=== PATIENT | female | born 1930 | race Caucasian/White ===

== ENCOUNTER 2016-05-30 12:04 | Inpatient (IN) | payer MEDICARE, BC ==
--- NOTE | ~2016-05-30 | HP ---
Unit #: [id number] #: [id number] Patient: ELIUD TAM [id number] [address] [address] [id number] I MR#: [id number] NAME: ELIUD TAM. ROOM: 05995 Age: 86 Sex: F Admission Date: 05/30/2016 : 1930 Attending Physician: Senia Qureshi M.D. Primary Care Physician: Shen Walter M.D. HISTORY AND PHYSICAL CHIEF COMPLAINT Right foot infection. HISTORY OF PRESENT ILLNESS The patient is an 86-year-old female with a past medical history of hypothyroidism, osteoporosis, and constipation, who presented to the emergency department for evaluation of the above. The patient states that she had foot surgery on May 23, 2016. She had a toe spur and had some type of surgery on the fourth and fifth toes of the right foot by Dr. Morris (Podiatry) at [facility]. She apparently saw Dr. Morris on May 28, 2016, and was noted to have infection. She was started on an unknown antibiotic which she has been taking as prescribed. The foot has not gotten any better, so she presented to the emergency department today for evaluation. She denies any fever. She states that she has had some drainage from the wound. She has had increased pain and swelling. In the emergency department, a foot x-ray was done and showed no acute abnormality. Temperature was 98.1 and pulse and blood pressure 85 and 145/45, respectively. White blood cell count is 5.9. She was given vancomycin and Levaquin in the emergency department. She is being admitted to [facility] for evaluation and further treatment. PAST MEDICAL HISTORY 1. Admission to [facility] June 21-2015, for abdominal pain secondary to constipation. She also had acute kidney injury and hyperkalemia. 2. Hypothyroidism. 3. Osteoporosis. PAST SURGICAL HISTORY 1. Cataract surgery. 2. Left leg surgery. 3. EGD and colonoscopy August 02, 2015, showed a small hiatal hernia, mild gastritis, and multiple small gastric erosions. The patient also had scattered sigmoid diverticula and mild internal hemorrhoids. SOCIAL HISTORY The patient lives alone. She continues to drive. There is no tobacco or alcohol use. She is not sure of her code status and wants to discuss with family. Unit #: [id number] #: [id number] Patient: ELIUD TAM FAMILY HISTORY Notable for her mother dying at the age of 88. Her dad had heart problems. ALLERGIES PENICILLIN, SULFA. HOME MEDICATIONS 1. Atrovent nasal twice daily. 2. Flovent daily. 3. Levothyroxine 50 mcg Saturday, Saturday, , Saturday, and Saturday, and 75 mcg on Saturday and Saturday. 4. Calcium plus D daily. 5. MiraLax 17 grams daily. REVIEW OF SYSTEMS A complete review of systems is negative except as indicated in the History of Present Illness. PHYSICAL EXAMINATION VITAL SIGNS: Temperature is 98.1, pulse 85, respirations 16, and blood pressure 145/54. GENERAL: Patient is a very pleasant female who is awake, alert, and in no acute distress. HEENT: Head is atraumatic. Mucous membranes are moist. NECK: Supple. Trachea is midline. CARDIOVASCULAR: Regular rate and rhythm. LUNGS: Clear to auscultation bilaterally with no increased work of breathing. ABDOMEN: Soft and nontender with bowel sounds present in all four quadrants. EXTREMITIES: The fourth and fifth digits of the right foot demonstrate sutures. There is surrounding erythema of the toes extending to the dorsal aspect of the right foot. Additionally, there is a blister at the base of the great toe and second toe. She does have 2+ dorsalis pedis pulse. She is tender to palpation in this area. NEUROLOGIC: Patient is awake and alert. She follows commands. PSYCHIATRIC: Mood and affect are normal. Patient is cooperative. SKIN: Skin of examined areas demonstrates the previously described abnormalities. DIAGNOSTIC STUDIES LABORATORY: INR is 1. Basic metabolic panel notable for BUN and creatinine of 31 and 1.1, respectively. Complete blood count is essentially normal. IMAGING: Right foot x-ray shows no acute abnormality. ASSESSMENT The patient is an 86-year-old female with: 1. Postoperative wound infection that has failed outpatient treatment with an unknown antibiotic. 2. Hypothyroidism. 3. Osteoporosis. 4. Chronic constipation. PLAN 1. Admit to med/surg. 2. Healthy heart diet. Unit #: [id number] #: [id number] Patient: ELIUD TAM 3. N.p.o. after midnight for possible surgical intervention. 4. Blood cultures x2. 5. Wound culture and sensitivity. 6. Vancomycin IV and Levaquin IV pending further workup. 7. Consult Dr. Morris of Podiatry regarding postop wound infection. 8. TSH. 9. P.r.n. Tylenol. 10. Repeat labs in the morning. 11. Additional workup and consultants based on above. Dictated by Rosemary Akins/tiffanie TD: 05/30/2016 18:28 JOB #: [id number] HISTORY AND PHYSICAL Page 1 of 1 X Senia Qureshi MD X HISTORY AND PHYSICAL
--- NOTE | ~2016-05-30 | HP ---
Unit #: [id number] #: [id number] Patient: ELIUD TAM [id number] [address] [address] [id number] I MR#: [id number] NAME: ELIUD TAM. ROOM: 474 Age: 86 Sex: F Admission Date: 05/30/2016 : 1930 Attending Physician: Senia Qureshi M.D. Primary Care Physician: Shen Waltre M.D. HISTORY AND PHYSICAL ADDENDUM I spoke with Dr. Charmaine Morris (Podiatry), who stated that a [facility] resident will see the patient in consultation. She stated that they would not do any type of surgical intervention and agreed with antibiotics. Dictated by Rosemary Akins/tiffanie TD: 05/30/2016 20:14 JOB #: [id number] HISTORY AND PHYSICAL Page 1 of 1 X Senia Qureshi MD X HISTORY AND PHYSICAL
--- NOTE | ~2016-05-30 | DS ---
Unit #: [id number] #: [id number] Patient: ELIUD TAM [id number] [address] [place], [place] [address] [id number] I MR#: [id number] NAME: ELIUD TAM. ROOM: 474 Age: 86 Sex: F Admission Date: 05/30/2016 : 1930 Discharge Date: 06/01/2016 Attending Physician: Sumanth Hardwick M.D. Primary Care Physician: Shen Walter M.D. DISCHARGE SUMMARY PRIMARY CARE PHYSICIAN Shen Walter M.D. DISCHARGE DIAGNOSES 1. Postop right foot wound seen by Podiatry. No signs of osteomyelitis. No signs of systemic infection. She will be discharged to continue oral antibiotics. 2. Hypothyroidism. TSH is 2.81. Continue levothyroxine and supplements. 3. History of osteoarthritis. 4. Chronic constipation. PROCEDURES None. CONSULTANTS [facility], Podiatry. DIAGNOSTIC STUDIES IMAGING STUDIES: Foot x-ray on 05/30/2016, impression; 1. No acute abnormality seen in the right foot. No fracture or evidence of osteomyelitis or retained radiopaque foreign body. 2. Osteopenia. LABORATORY RESULTS: On the day of discharge BMP; glucose 99, BUN 32, creatinine 1.1, sodium 136, potassium 4.7, chloride 108, CO2 of 21, calcium 9.2, magnesium 1.8. CBC with WBC 5.7, RBC 3.85, hemoglobin 11.6, hematocrit 35.5, MCV 92.2, MCH 30.2, MCHC 32.8, RDW 12.6, platelets 151, MPV 9.5. Wound and blood cultures, no growth. HOSPITAL COURSE The patient is a pleasant 86-year-old female with past medical history of hypothyroidism, osteoarthritis, and chronic constipation, who presented to the emergency department due to foot pain. The patient had foot surgery in 05/28/2016 with [facility] Podiatry with Dr. Morris, the 4th and 5th toes of the right foot. She was seen by Dr. Morris on 05/28/2016 and was noted to have cellulitis of the foot and was started on clindamycin. She states that the foot pain has gone worse, but no fever, no drainage on the wound, only a small blister. X-ray of the foot was done in the emergency department which showed no acute abnormality. Vitals were stable. She was admitted to [facility] and was given vancomycin and Levaquin for persistent foot pain despite oral antibiotics and pain management in home. She was seen in consultation with [facility] Podiatry, who felt that there was a blister and it was lanced, but possibly the compression of the foot was too much for her and that she could remove it, Unit #: [id number] #: [id number] Patient: ELIUD TAM but no evidence of osteomyelitis and the cellulitis did not look systemically infected. It was recommended that the patient to stay for a couple of days of IV antibiotics given the cellulitis and persistent pain. After blood and wound culture were negative, it was felt by Podiatry that the patient was safe to be discharged home to continue with clindamycin that she was taking as was prior to hospitalization and she could continue with pain medicine that they had given her outpatient for pain management. The patient will be discharged. She will be going home to her son's home to stay with them. DISCHARGE CONDITION Stable. DISCHARGE INSTRUCTIONS To remain off the foot and to elevate as much as possible for dependent pain. Diet, heart-healthy diet. The patient is to follow up with Podiatry. She has an appointment on Saturday with Dr. Juarez and Dr. Castillo. She is to keep the dressing dry. DISCHARGE MEDICATIONS Includes clindamycin as was prior to admission, pain medicine as was prior to admission per her Podiatry; ipratropium 0.03 nasal spray 2 puffs daily; Flovent Diskus inhaled 2 puffs daily; MiraLax 17 g orally daily; calcium + D one tablet orally daily; levothyroxine 50 mcg Saturday, Saturday, , Saturday, and Saturday; levothyroxine 75 mcg Saturday and Saturday. Dictated by... Doni Franklin PA-C for Rosemary Barraza/zechariah TD: 06/03/2016 07:00 JOB #: [id number] DISCHARGE SUMMARY Page 1 of 1 X X DISCHARGE SUMMARY
--- NOTE | ~2016-05-30 | CR127 ---
[facility] A Service of [facility] RADIOLOGY TEXT RESULTS PATIENT: ELIUD TAM LOCATION: [facility] 474-01 : [birth year] UNIT #: [id number] AGE: [address]: Senia Qureshi MD SEX: F ORDER DR: [id number] [facility] [address]. [place], [place] [address] [id number] E MR#: [id number] Acc #: [id number] NAME: ELIUD TAM. : 1930 SEX: F STUDY DATE/TIME: 05/30/2016 11:51 UNIT: [facility] ROOM: STUDY DESCRIPTION: CR Foot Complete Min 3 View Rt Attending Physician: Ha Mcgowan D.O. Ordering Physician: Ha Mcgowan D.O. Primary Care Physician: Shen Walter M.D. MEDICAL IMAGING REPORT This report is preliminary unless electronic signature is present EXAM 3 views right foot, 05/30/2016 11:51. HISTORY Pain, swelling and redness of right foot. Blisters on the top of the foot. Had surgery on the right foot for bone spurs 1 week ago. COMPARISON None. FINDINGS No fracture or joint dislocation is seen. Osteopenic changes are present. No osteolytic or osteoblastic abnormalities. No evidence of periostitis. No unexpected retained radiopaque foreign body is seen within the soft tissues. Joint spaces appear well preserved. IMPRESSION 1. No acute abnormality is seen within the right foot. No fracture or evidence of osteomyelitis or retained radiopaque foreign body. 2. Osteopenia. Dictated by... Rubi Sher M.D. THIS IS AN ELECTRONICALLY VERIFIED REPORT Rubi Sher M.D. at 05/31/2016 7:04 AM VERONICA/navi TD: 05/30/2016 13:50 JOB #: [id number] MEDICAL IMAGING REPORT [facility] A Service of [facility] RADIOLOGY TEXT RESULTS PATIENT: ELIUD TAM LOCATION: [place] [address]-01 : [birth year] UNIT #: [id number] AGE: [address]: Senia Qureshi MD SEX: F ORDER DR: Page 1 of 1 COPY
[~2016-05-30 12:04] MED LIST: ASPIRIN; BENZONATATE PO; CALCIUM; ENEMA BAG1 EACH PR; EVISTA60 MG; FOSAMAX; MIRALAX17 G2 PO; OMEPRAZOLE20 M2 PO; SYNTHROID; SYNTHROID PO; TAMIFLU75 M1 PO; THYROID MED; VAGIFEM25 MCG; ZESTRIL10 MG PO
[2016-05-30 12:16] LABS: PARTIAL THROMBOPLASTIN TIME 27.7 SECONDS (23.5-31.3)
[2016-05-30 12:35] LABS: BUN/CREATININE RATIO 28.18; CALCIUM SERUM 9.1 mg/dL (8.4-10.2); CREATININE SERUM 1.1 mg/dL (0.6-1.4); GLOM FILT RATE Estimated 44.8 mL/min (>60); POTASSIUM 4.7 mmol/L (3.5-5.1)
[2016-05-30] MEDS ORDERED: FLOVENT DISKUS50 MCG INH (13:57)
[2016-05-30 16:07] LABS: BASOPHIL% 0.8 % (0-2.5); EOSINOPHIL# 0.1 X10e3 (0-0.7); EOSINOPHIL% 2.3 % (0.0-7.0); HEMATOCRIT 36.7 % (35.0-45.0); HEMOGLOBIN 12.1 gm/dL (12.0-16.0); LYMPHOCYTE# 1.6 X10e3 (1.0-3.5); LYMPHOCYTE% 27.9 % (17.0-45.0); MEAN CELL VOLUME 93.2 FL (83-96); MEAN CORPUSCULAR HEMOGLOBIN 30.7 PG (28-34); MEAN CORPUSCULAR HGB CONC 32.9 g/dL (30-36); MEAN PLATELET VOLUME 9.4 FL (6.5-11.5); MONOCYTE# 0.8 X10e3 (0-1.0); MONOCYTE% 13.9 % (3.0-12.0); NEUTROPHIL# 3.2 X10e3 (1.5-7.1); NEUTROPHIL% 55.1 % (40-75); PLATELET COUNT 154 X10e3 (140-420); RED BLOOD COUNT 3.93 X10e (3.90-5.30); RED CELL DISTRIBUTION WIDTH 12.7 % (11.0-15.5); WHITE BLOOD COUNT 5.9 X10e3 (4.0-10.5)
[2016-05-30 16:09] LABS: DIFF IND NO
[2016-05-31 03:42] LABS: BASOPHIL# 0.1 X10e3 (0-0.3); DIFF IND NO; EOSINOPHIL# 0.1 X10e3 (0-0.7); EOSINOPHIL% 2.3 % (0.0-7.0); HEMOGLOBIN 12.6 gm/dL (12.0-16.0); LYMPHOCYTE# 1.9 X10e3 (1.0-3.5); LYMPHOCYTE% 33.2 % (17.0-45.0); MEAN CELL VOLUME 92.3 FL (83-96); MEAN CORPUSCULAR HEMOGLOBIN 30.6 PG (28-34); MEAN CORPUSCULAR HGB CONC 33.1 g/dL (30-36); MEAN PLATELET VOLUME 8.6 FL (6.5-11.5); MONOCYTE# 0.9 X10e3 (0-1.0); NEUTROPHIL# 2.8 X10e3 (1.5-7.1); NEUTROPHIL% 47.5 % (40-75); PLATELET COUNT 165 X10e3 (140-420); RED BLOOD COUNT 4.11 X10e (3.90-5.30); RED CELL DISTRIBUTION WIDTH 12.9 % (11.0-15.5); WHITE BLOOD COUNT 5.8 X10e3 (4.0-10.5)
[2016-05-31 04:07] LABS: ALBUMIN SERUM 3.8 g/dL (3.5-5.0); BILIRUBIN,TOTAL 0.5 mg/dL (0.2-2.0); BUN/CREATININE RATIO 23.63; CALCIUM SERUM 9.5 mg/dL (8.4-10.2); CREATININE SERUM 1.1 mg/dL (0.6-1.4); GLOM FILT RATE Estimated 44.8 mL/min (>60); POTASSIUM 4.9 mmol/L (3.5-5.1); PROTEIN TOTAL SERUM 6.3 g/dL (6.0-8.3)
[2016-06-01 04:45] LABS: BUN/CREATININE RATIO 29.09; CALCIUM SERUM 9.2 mg/dL (8.4-10.2); CREATININE SERUM 1.1 mg/dL (0.6-1.4); GLOM FILT RATE Estimated 44.8 mL/min (>60); POTASSIUM 4.7 mmol/L (3.5-5.1)
[2016-06-01 08:33] LABS: BASOPHIL% 0.7 % (0-2.5); EOSINOPHIL# 0.1 X10e3 (0-0.7); EOSINOPHIL% 2.3 % (0.0-7.0); HEMATOCRIT 35.5 % (35.0-45.0); HEMOGLOBIN 11.6 gm/dL (12.0-16.0); LYMPHOCYTE# 1.8 X10e3 (1.0-3.5); LYMPHOCYTE% 31.7 % (17.0-45.0); MEAN CELL VOLUME 92.2 FL (83-96); MEAN CORPUSCULAR HEMOGLOBIN 30.2 PG (28-34); MEAN CORPUSCULAR HGB CONC 32.8 g/dL (30-36); MEAN PLATELET VOLUME 9.5 FL (6.5-11.5); MONOCYTE# 1.1 X10e3 (0-1.0); MONOCYTE% 19.6 % (3.0-12.0); NEUTROPHIL# 2.6 X10e3 (1.5-7.1); NEUTROPHIL% 45.7 % (40-75); PLATELET COUNT 151 X10e3 (140-420); RED BLOOD COUNT 3.85 X10e (3.90-5.30); RED CELL DISTRIBUTION WIDTH 12.6 % (11.0-15.5); WHITE BLOOD COUNT 5.7 X10e3 (4.0-10.5)
[2016-06-01 08:40] LABS: DIFF IND NO
[2016-06-01 08:49] LABS: MAGNESIUM 1.8 mg/dL (1.6-3.0)
[2016-06-28] MEDS ORDERED: FLONASE 0.05% N16 GM INH (13:18)
[2016-06-28] MEDS ORDERED: ATROVENT 0.03%30 ML (13:56)
[2016-06-28] MEDS ORDERED: LEVOTHYROXINE75 MCG PO (13:58)
[2016-06-28] MEDS ORDERED: LEVOTHYROXINE50 MCG PO (13:58)
[2016-06-28] MEDS ORDERED: CALCIUM + D SO1 EACH PO (13:59)
[2016-06-28] MEDS ORDERED: MIRALAX17 GM PO (14:00)
== END 2016-06-01 15:26 | disposition home or self-care (01) | DRG 863 ==
LOC: CED 12:04 → CEDOF 17:01 → C4C 19:23
PROVIDERS: Emergency Medicine; Family Medicine; Physician Assistant Medical
PROC: 0H9MXZZ Drainage of Right Foot Skin, External Approach (ICD-10-PCS; principal; 2016-05-31)
DX: T81.4XXA Infection following a procedure, initial encounter (principal); L03.115 Cellulitis of right lower limb; E03.9 Hypothyroidism, unspecified; M19.90 Unspecified osteoarthritis, unspecified site; K59.09 Other constipation; Z98.49 Cataract extraction status, unspecified eye; G89.18 Other acute postprocedural pain; M81.0 Age-related osteoporosis without current pathological fracture; S90.821A Blister (nonthermal), right foot, initial encounter
CPT/HCPCS: 36415; 73630; 80048; 80053; 80202; 83735; 84443; 85025; 85610; 85730; 87040; 87070; 87205; 96360; 99285; J1956; J3370

== ENCOUNTER 2016-06-04 14:00 | Emergency (ER) | payer MEDICARE, BC ==
--- NOTE | ~2016-06-04 | EKG ---
PATIENT: ELIUD TAM UNIT #: [id number] Ventricular Rate: 77 BPM Atrial Rate: 77 BPM P-R Interval: 162 ms QRS Duration: 130 ms Q-T Interval: 400 ms QTC Calculation(Bezet): 452 ms P [place]: 61 degrees Calculated R [place]: -46 degrees Calculated T [place]: 42 degrees Diagnosis Line: Normal sinus rhythm Diagnosis Line: Left axis deviation Diagnosis Line: Non-specific intra-ventricular conduction block Diagnosis Line: Abnormal ECG Diagnosis Line: When compared with ECG of 22-JUN-2015 20:00, Diagnosis Line: QRS axis Shifted left Diagnosis Line: Confirmed by ASHLEY CHRISTINA MD ([id number]) on 06/05/2016 Diagnosis Line: 5:42:32 AM INTERPRETING MD: CARRI DIAS
--- NOTE | ~2016-06-04 | DS ---
Unit #: [id number] #: [id number] Patient: ELIUD TAM [id number] [facility] [address]. [place], [place] [address] [id number] E MR#: [id number] NAME: ELIUD TAM ROOM: Age: 86 Sex: F Admission Date: 06/04/2016 : 1930 Discharge Date: 06/04/2016 Attending Physician: Nikolai Jasso M.D. Primary Care Physician: Shen Walter M.D. DISCHARGE SUMMARY SHORT-STAY SUMMARY HISTORY OF PRESENT ILLNESS This is an 86-year-old white female new to Cardiology with a past medical history of osteoarthritis, hypothyroidism, chronic constipation and varicose veins. She was recently admitted to [facility] May 30, 2016 for a right foot wound. X-rays revealed no osteomyelitis. Podiatry was consulted. She was placed on IV antibiotics and subsequently discharged on oral antibiotics. She went to the podiatry office today and was told that she could stop her antibiotics. She presented to the emergency department with complaints of chest pain. She states that since she has been on antibiotics she has had multiple episodes of nausea. After she takes a pill it causes stomach upset. Today around 10 o'clock a.m. she took the antibiotic and not only had some nausea but felt some pressure in her epigastric area that went up into her midsternal chest and neck. There was no radiation to the elbows, jaw or back. There were no sustained symptoms of diaphoresis or shortness of breath. There were no aggravating or alleviating factors. This is her first episode of chest pain. She has had no prior episodes. She is fairly active and still drives. She lives alone and does all of her own housework and yard work. There is no shortness of breath on exertion. She denies dizziness, palpitations or syncope. There are no reports of fever or chills. She denies any lower extremity edema. In the emergency department her temperature was 97.2, pulse 78, respirations 16, blood pressure 161/60, O2 saturation 98% on room air. Initial labs revealed a creatinine of 1.1 with a BUN of 32. Electrolytes are normal. Liver enzymes are normal. TSH on 05/31/2016 was normal. D-dimer was elevated at 2120. A CTA of the chest was completed and revealed no evidence of pulmonary embolus. On exam legs have no edema, redness or warmth. Cardiac enzymes are nonacute with a troponin of 0.07 and 0.06. Chest x-ray reveals no acute findings. X-ray of the foot last week revealed no evidence of osteomyelitis. The patient was given aspirin, Mylanta and sublingual nitroglycerin. She was recommended for admission due to chest pain. However, upon further interview the patient would like to be discharged home to avoid observation status. This is her first episode of chest pain and she really feels like it is from her antibiotics. She has agreed to follow up in our office for further evaluation. Her EKG is not acute but does reveal a left axis deviation as well as a nonspecific intraventricular conduction delay with a QRS of 0.13. The patient agrees to follow up and has been instructed to call for questions or come back to the emergency department for recurrent symptoms. She will be sent home on oral Protonix. Unit #: [id number] #: [id number] Patient: ELIUD TAM PAST MEDICAL HISTORY 1. Exercise stress test June 19, 2013 revealed a good exercise capacity. Normal EKG. 2. Recent admission to [facility] May 30, 2016 for right foot wound. No osteomyelitis. Discharged on oral antibiotics. 3. Hypothyroidism. 4. Chronic constipation. 5. Osteoarthritis. 6. History of rheumatic fever as a child. 7. History of EGD August 02, 2015 which revealed small hiatal hernia. Mild gastritis. Multiple small gastric erosions. Mild internal hemorrhoids with scattered diverticula. 8. Nonsmoker. PAST SURGICAL HISTORY 1. Cataract extraction. 2. Removal of varicose veins. 3. Tonsillectomy as a child. 4. Lumpectomy from breast, nonmalignant. HOME MEDICATIONS 1. Atrovent nasal b.i.d. 2. Levothyroxine 50 mcg p.o. daily on Saturday, Saturday, , Saturday, Saturday with 75 mcg on Saturday and Saturday. 3. Calcium with vitamin D one tablet p.o. daily. 4. MiraLAX 17 g p.o. daily. 5. Flonase one spray inhalation daily. ALLERGIES Penicillin, sulfa. SOCIAL HISTORY The patient lives in a private residence. She is a lifetime nonsmoker. There are no reports of alcohol or illicit drug use. She is very active and does all of her housework and yard work. She lives alone and continues to drive. FAMILY HISTORY Noncontributory for heart disease. REVIEW OF SYSTEMS A 10-point review of systems is negative except for details noted above in HPI. PHYSICAL EXAMINATION VITAL SIGNS: Temperature 97.2. Pulse 70. Blood pressure 150/71. CONSTITUTIONAL: This is an 86-year-old white female in no acute distress. SKIN: Skin is warm and dry. NECK: Neck is supple. No jugular vein distention. No hepatojugular reflux. Normal carotid upstrokes. No carotid bruits auscultated. HEART: S1, S2. Regular rate and rhythm. Soft systolic ejection murmur of the left sternal border. No rubs or gallops. LUNGS: Bilateral breath sounds have good air entry throughout lung conde. Respirations even and unlabored. No rales, rhonchi or wheezes. ABDOMEN: Abdomen is soft, nontender and nondistended. Positive bowel sounds auscultated x4 quadrants. No ascites noted. EXTREMITIES: Bilateral lower extremities have no pretibial pitting edema. Unit #: [id number] #: [id number] Patient: ELIUD TAM DP and PT pulses 2+. Capillary refill less than two seconds. DIAGNOSTIC STUDIES LABORATORY: White blood cell count 8.8, hemoglobin 13.1, hematocrit 39.1, platelets 179, sodium 135, potassium 4.1, chloride 101, CO2 24, BUN 32, creatinine 1.1, glucose 101, magnesium 1.8, AST 22, ALT 13, alkaline phosphatase 55, TSH 2.81 on May 31, 2016 and INR 1.0, D-dimer 2120, troponin 0.07 and 0.06. IMAGING: Chest x-ray no acute findings, calcified mitral annulus. X-ray of the right foot with no acute findings to suggest osteomyelitis and that was completed last week. CTA of the chest reveals no pulmonary embolus. CARDIOVASCULAR: EKG reveals sinus rhythm with a left axis deviation. Nonspecific intraventricular conduction delay. Possible LVH. QTc of 446 msec. IMPRESSION 1. Atypical chest pain. 2. Recent right foot infection, on antibiotics. No evidence of osteomyelitis on imaging. 3. Elevated D-dimer with no evidence of deep venous thrombosis on exam. CTA of the chest negative for pulmonary embolus. 4. Hypothyroidism. 5. Osteoarthritis. PLAN 1. The patient presented to the hospital with complaints of one episode of chest pain after taking her antibiotic. She went to her patient registrar and the antibiotic has been stopped. 2. There is no fever or chills. Her right leg has no streaking, warmth or edema. 3. Cardiac enzymes are nonacute with a troponin of 0.06. EKG is not normal and does reveal a left axis deviation as well as a nonspecific intraventricular conduction delay. However there are no acute findings. 4. The patient was originally recommended for hospitalization but does not want to stay overnight. 5. With negative CTA of the chest and nonacute markers she is stable for discharge home. 6. She has been instructed to follow up with her primary care in one to two weeks and with Dr. Alomdovar on July 03, 2016 at 1:00 p.m. 7. Her antibiotic has been discontinued from Podiatry. 8. She will be placed on Protonix 40 mg p.o. daily as symptoms could be GI related. 9. She would benefit from a 2D echocardiogram in the office to assess LV function and valves. 10. She did have a stress test in 2013 that was a treadmill only. She could be considered for a repeat ischemic workup though she has minimal risk factors for ischemic disease. 11. The patient has been advised to return to the emergency department for recurrent chest pain. Unit #: [id number] #: [id number] Patient: ELIUD TAM Dictated by... Linda Parks APRN for Rosemary Mejia/fuad TD: 06/04/2016 17:11 JOB #: [id number] DISCHARGE SUMMARY Page 1 of 1 X X DISCHARGE SUMMARY
--- NOTE | ~2016-06-04 | CT16 ---
[facility] A Service of [facility] RADIOLOGY TEXT RESULTS PATIENT: ELIUD TAM LOCATION: [employer] : [birth year] UNIT #: [id number] AGE: [address]: Nikolai Jasso MD SEX: F ORDER DR: [id number] [facility] [address] [place], [place] [address] [id number] E MR#: [id number] Acc #: [id number] NAME: ELIUD TAM. : 1930 SEX: F STUDY DATE/TIME: 06/04/2016 14:49 UNIT: [facility] ROOM: STUDY DESCRIPTION: CT Angio Chest for PE Attending Physician: Nikolai Jasso M.D. Ordering Physician: Nikolai Jasso M.D. Primary Care Physician: Shen Walter M.D. MEDICAL IMAGING REPORT This report is preliminary unless electronic signature is present EXAM CT chest PE protocol. HISTORY 86-year-old female presents with chest pain, elevated D-dimer today, symptoms for [id number]-og-mqlhc days. COMPARISON Portable chest, 06/04/2016. TECHNIQUE Axial images performed through the chest following IV contrast. 3-D coronal and sagittal reconstructed images are reviewed at a workstation. This CT exam was performed with one or more of the following radiation dose reduction techniques: automatic exposure control, adjustment of mA and/or kV according to patient size, and iterative reconstruction. FINDINGS There is several calcified granulomas right upper lobe. Background parenchyma suggests mild emphysematous changes. No acute airspace disease or consolidation. No effusions. Trachea and bronchi show mild tracheobronchomegaly. Normal enhancement of the pulmonary arteries. No evidence of embolus. Mild aortic atherosclerotic changes. Heart size within normal limits. No significant adenopathy. Upper abdomen unremarkable. Thoracic spine demonstrates accentuation of the thoracic kyphosis with mild degenerative changes. Thoracic inlet unremarkable. IMPRESSION 1. No acute intrathoracic abnormality identified. In particular, no evidence of pulmonary embolus. [facility] A Service of [facility] RADIOLOGY TEXT RESULTS PATIENT: ELIUD TAM LOCATION: [facility] [employer] : [birth year] UNIT #: [id number] AGE: [address]: Nikolai Jasso MD SEX: F ORDER DR: 2. Pulmonary parenchymal changes suggest underlying emphysema. Dictated by... Keith Ferrara M.D. THIS IS AN ELECTRONICALLY VERIFIED REPORT Keith Ferrara M.D. at 06/04/2016 4:56 PM EDUIN/clare TD: 06/04/2016 16:08 JOB #: [id number] MEDICAL IMAGING REPORT Page 1 of 1 COPY
--- NOTE | ~2016-06-04 | EKG ---
PATIENT: ELIUD TAM UNIT #: [id number] Ventricular Rate: 72 BPM Atrial Rate: 72 BPM P-R Interval: 172 ms QRS Duration: 134 ms Q-T Interval: 408 ms QTC Calculation(Bezet): 446 ms P [place]: 30 degrees Calculated R [place]: -34 degrees Calculated T [place]: 2 degrees Diagnosis Line: Normal sinus rhythm Diagnosis Line: Left axis deviation Diagnosis Line: Left ventricular hypertrophy with QRS widening Diagnosis Line: Abnormal ECG Diagnosis Line: When compared with ECG of 04-JUN-2016 12:05, Diagnosis Line: (unconfirmed) Diagnosis Line: Inverted T waves have replaced nonspecific T wave Diagnosis Line: abnormality in Inferior leads Diagnosis Line: Confirmed by ASHLEY CHRISTINA MD ([id number]) on 06/05/2016 Diagnosis Line: 5:43:20 AM INTERPRETING MD: CARRI DIAS
--- NOTE | ~2016-06-04 | CR72 ---
[facility] A Service of [facility] & [facility] RADIOLOGY TEXT RESULTS PATIENT: ELIUD TAM LOCATION: [facility] : [birth year] UNIT #: [id number] AGE: [address]: Nikolai Jasso MD SEX: F ORDER DR: [id number] [facility] [address] [place], [place] [address] [id number] E MR#: [id number] Acc #: [id number] NAME: ELIUD TAM : 1930 SEX: F STUDY DATE/TIME: 06/04/2016 12:50 UNIT: [facility] ROOM: STUDY DESCRIPTION: CR Chest Single View Portable Attending Physician: Nikolai Jasso M.D. Ordering Physician: Nikolai Jasso M.D. Primary Care Physician: Shen Walter M.D. MEDICAL IMAGING REPORT This report is preliminary unless electronic signature is present EXAM AP portable chest 06/04/2016 HISTORY 86-year-old female in the ED complaining of new onset left side chest pain today. Shortness of air. TECHNIQUE AP portable upright chest x-ray. FINDINGS The exam shows no active disease. Heart size and pulmonary vascularity are normal. Calcified mitral valve annulus. The lungs are clear. Scattered benign calcified granulomas in both upper lungs. No change since 09/29/2014. IMPRESSION No active disease. No change since 09/29/2014. Dictated by... Sandro Blackwood M.D. THIS IS AN ELECTRONICALLY VERIFIED REPORT Sandro Blackwood M.D. at 06/04/2016 3:58 PM ELODIA/yaya TD: 06/04/2016 14:18 JOB #: [id number] MEDICAL IMAGING REPORT Page 1 of 1 COPY
[2016-06-04 12:44] LABS: POC - CKMB 1.8 ng/mL (0.0-7.9); POC - TROPONIN 0.07 ng/mL (<=0.05)
[2016-06-04 12:45] LABS: BASOPHIL# 0.1 X10e3 (0-0.3); BASOPHIL% 0.8 % (0-2.5); EOSINOPHIL# 0.1 X10e3 (0-0.7); EOSINOPHIL% 1.2 % (0.0-7.0); HEMATOCRIT 39.1 % (35.0-45.0); HEMOGLOBIN 13.1 gm/dL (12.0-16.0); LYMPHOCYTE# 1.9 X10e3 (1.0-3.5); LYMPHOCYTE% 22.1 % (17.0-45.0); MEAN CORPUSCULAR HEMOGLOBIN 30.8 PG (28-34); MEAN CORPUSCULAR HGB CONC 33.4 g/dL (30-36); MEAN PLATELET VOLUME 9.2 FL (6.5-11.5); MONOCYTE% 11.1 % (3.0-12.0); NEUTROPHIL# 5.7 X10e3 (1.5-7.1); NEUTROPHIL% 64.8 % (40-75); PLATELET COUNT 179 X10e3 (140-420); RED BLOOD COUNT 4.25 X10e (3.90-5.30); RED CELL DISTRIBUTION WIDTH 12.8 % (11.0-15.5); WHITE BLOOD COUNT 8.8 X10e3 (4.0-10.5)
[2016-06-04 12:46] LABS: DIFF IND NO
[2016-06-04 12:57] LABS: PARTIAL THROMBOPLASTIN TIME 24.6 SECONDS (23.5-31.3); PROTHROMBIN TIME (PATIENT) 10.1 SECONDS (9.6-11.5)
[2016-06-04 13:06] LABS: ALBUMIN SERUM 4.4 g/dL (3.5-5.0); BILIRUBIN, DIRECT 0.1 mg/dL (0.0-0.2); BILIRUBIN,INDIRECT 0.5 mg/dL (0.0-0.9); BILIRUBIN,TOTAL 0.6 mg/dL (0.2-2.0); BUN/CREATININE RATIO 29.09; CALCIUM SERUM 9.5 mg/dL (8.4-10.2); CREATININE SERUM 1.1 mg/dL (0.6-1.4); GLOM FILT RATE Estimated 44.8 mL/min (>60); POTASSIUM 4.1 mmol/L (3.5-5.1); PROTEIN TOTAL SERUM 7.3 g/dL (6.0-8.3)
[~2016-06-04 14:00] MED LIST changes: +FLOVENT DISKUS50 MCG INH
[2016-06-04 14:19] LABS: POC - TROPONIN 0.06 ng/mL (<=0.05)
[2016-06-28] MEDS ORDERED: FLONASE 0.05% N16 GM INH (13:18)
[2016-06-28] MEDS ORDERED: ATROVENT 0.03%30 ML (13:56)
[2016-06-28] MEDS ORDERED: LEVOTHYROXINE75 MCG PO (13:58)
[2016-06-28] MEDS ORDERED: LEVOTHYROXINE50 MCG PO (13:58)
[2016-06-28] MEDS ORDERED: CALCIUM + D SO1 EACH PO (13:59)
[2016-06-28] MEDS ORDERED: MIRALAX17 GM PO (14:00)
== END 2016-06-04 17:01 | disposition home or self-care (01) ==
LOC: CED 14:00
PROVIDERS: Emergency Medicine
DX: I20.0 Unstable angina (principal); Z88.0 Allergy status to penicillin; Z88.2 Allergy status to sulfonamides; Z79.899 Other long term (current) drug therapy
CPT/HCPCS: 36415; 71010; 71275; 80048; 80076; 82553; 84484; 85025; 85379; 85610; 85730; 93005; 96360; 99285; Q9967

== ENCOUNTER → 2016-06-28 | Outpatient (CLI) | payer MEDICARE, BC ==
[~2016-06-28] MED LIST changes: +ATROVENT 0.03%30 ML; +CALCIUM + D SO1 EACH PO; +FLONASE 0.05% N16 GM INH; +LEVOTHYROXINE50 MCG PO; +LEVOTHYROXINE75 MCG PO; +MIRALAX17 GM PO
== END | disposition home or self-care (01) ==
LOC: CSSDAY 09:00
DX: M81.0 Age-related osteoporosis without current pathological fracture (principal); Z79.899 Other long term (current) drug therapy
CPT/HCPCS: 96372; J0897

== ENCOUNTER 2016-07-03 23:52 | Observation (INO) | payer MEDICARE, BC ==
--- NOTE | ~2016-07-03 | HP ---
Unit #: [id number] #: [id number] Patient: ELIUD TAM [id number] [address] [address] [id number] E MR#: [id number] NAME: ELIUD TAM. ROOM: Age: 86 Sex: F Admission Date: 07/03/2016 : 1930 Attending Physician: Claude Schulz M.D. Primary Care Physician: Shen Walter M.D. HISTORY AND PHYSICAL CHIEF COMPLAINT Chronic constipation with fecal impaction, asymptomatic mild elevation of lipase. HISTORY This pleasant 86-year-old female with chronic constipation, hypothyroidism, is admitted for fecal impaction. The patient has chronic constipation and generally uses a warm enema on a daily basis along with MiraLAX. Her last colonoscopy 2015 just showed mild diverticular disease, along with hemorrhoids. She states that she was in her usual state of health until yesterday when she became constipated, despite using multiple enemas and her MiraLAX. She developed rectal pressure and lower abdominal discomfort, along with decreased urinary output. She therefore, presented to this emergency department late last evening. Now feels better after a soapsuds enema and manual disimpaction. In the course of her evaluation labs were performed and the patient was found to have an amylase of 168. However, she denies nausea and vomiting, is nontender in the epigastric region. When I last admitted this patient 06/2015 she presented in a similar manner, with constipation and asymptomatic elevation of amylase and lipase without true findings of pancreatitis. PAST MEDICAL HISTORY 1. Hypothyroidism. 2. Osteoporosis. 3. Chronic constipation. 4. Recent admission 05/2016 for a right foot wound with infection. 5. Left leg surgery. 6. Cataract extraction. 7. EGD and colonoscopy 2015 showing mild diverticular disease and internal hemorrhoids. EGD revealed a small hiatal hernia and gastric erosions. ALLERGIES Penicillin and sulfa. HOME MEDICATIONS Synthroid 0.05 mg daily except for 0.075 mg Wednesdays and Saturdays; calcium plus D; MiraLAX 1 tbsp daily. Patient also received a Prolia injection recently. FAMILY HISTORY Colon disease. Unit #: [id number] #: [id number] Patient: ELIUD TAM SOCIAL HISTORY The patient is , lives alone. Lifelong nonsmoker. Does not drink alcohol. REVIEW OF SYSTEMS Notable for rectal and lower abdominal discomfort, fecal impaction, constipation, hypothyroidism, osteoporosis, above mentioned surgeries. All other systems were reviewed and otherwise negative. PHYSICAL EXAMINATION GENERAL: Very pleasant, thin, young appearing 86-year-old female currently in no acute distress. VITAL SIGNS: Temperature 97.8, pulse 73, respirations 16, blood pressure 130/62, O2 saturation 100% on room air. HEENT: Eyes - PERRLA. Extraocular muscles are intact. Pharynx is benign. NECK: Supple without adenopathy or thyromegaly. CHEST: Clear. CARDIAC: Normal S1 and S2 without S3, S4 or murmur. ABDOMEN: Bowel sounds are diminished. The abdomen is distended, but really not particularly tender at this time. No hepatosplenomegaly or masses. RECTAL: Heme negative stool per the ER physician. EXTREMITIES: Without clubbing, cyanosis or edema. Pedal pulses are present. NEUROLOGIC: Patient is awake, alert, and oriented. Cranial nerves are intact. Equal strength throughout. DIAGNOSTIC STUDIES ADMISSION LABS: Hematocrit is 36.5, normal white cont and platelet count. SMA 12 - glucose 115, sodium 134, CO2 21. Lipase is 168 and has been elevated in the past. Urinalysis is negative. IMAGING STUDIES: CT scan shows fecal impaction, fluid gas, somewhat distended colon, stable hypodense pancreatic lesion. ASSESSMENT 1. Chronic constipation with fecal impaction. Patient was disimpacted in the ER and feels better. 2. Elevated lipase, patient does not have symptoms or signs of pancreatitis currently. CT scan shows what appears to be a stable hypodense pancreatic lesion. 3. Hypothyroidism. PLANS 1. Gentle IV fluids. 2. Repeat labs later today. 3. Increase MiraLAX. 4. Will give Dulcolax suppository. Patient uses daily enemas. Again her last colonoscopy 2005 only revealed some diverticular disease and internal hemorrhoids. Dictated by Kary Nolasco M.D. LIZ/ts Unit #: [id number] #: [id number] Patient: ELIUD TAM Cony TD: 07/04/2016 06:24 JOB #: [id number] HISTORY AND PHYSICAL Page 1 of 1 X Kary Nolasco MD HISTORY AND PHYSICAL
--- NOTE | ~2016-07-03 | DS ---
Unit #: [id number] #: [id number] Patient: ELIUD TAM [id number] [address] [address] [id number] I MR#: [id number] NAME: ELIUD TAM. ROOM: 230 Age: 86 Sex: F Admission Date: 07/04/2016 : 1930 Discharge Date: 07/04/2016 Attending Physician: Serina Marshall M.D. Primary Care Physician: Shen Walter M.D. DISCHARGE SUMMARY PRINCIPAL DIAGNOSES 1. Fecal impaction. 2. Acute on chronic constipation. 3. Asymptomatic lipase elevation. 4. Pancreatic cyst, stable since 2006. 5. Hypothyroidism. 6. Seasonal allergies. CONSULTANTS None. PROCEDURES CT scan of the abdomen and pelvis on July 04, 2016, with fecal impaction noted in the rectum. Colon was fluid-filled and gas-filled and was mildly distended. Hypodense lesion in the pancreas that was stable since 2006. CLINICAL HISTORY/HOSPITAL COURSE Ms. Tam is a very nice 86-year-old female who presents to the emergency department with complaints of abdominal pain and inability to have stool. Please refer to H and P for further details. CT scan reveals fecal impaction and patient underwent manual disimpaction in addition to enema and suppository placement. Blood work, however, revealed a mild elevation in lipase and for this reason patient was placed in observation. The patient had no complaints of nausea, vomiting or inability to tolerate diet. She has no upper and/or epigastric abdominal pain. Review of records indicate she frequently will present with an elevated lipase initially while constipated and this subsequently decreases. I have discussed with patient rechecking lipase but, given her lack of symptoms, she does not feel it is necessary and I think this is reasonable. She has had several bowel movements since presenting to the floor and our plan is to discharge home. We are going to increase MiraLAX to twice a day at home and she should continue enemas p.r.n. at home with perhaps waiting a couple of days due to her rectal tenderness. DISCHARGE CONDITION Stable. DISCHARGE STATUS Discharge to home. DISCHARGE MEDICATIONS 1. MiraLAX 17 g p.o. b.i.d. 2. Atrovent nasal solution, 30 mL b.i.d. Unit #: [id number] #: [id number] Patient: ELIUD TAM 3. Flonase 0.05% nasal spray, one spray per nostril daily. 4. Calcium plus D, one tablet daily. 5. Levothyroxine 50 mcg daily on Saturday, Saturday, , Saturday, Saturday and 75 mcg on Saturday and Saturday. DISCHARGE INSTRUCTIONS I have instructed patient to increase her water intake. She can increase her activity as tolerated. FOLLOWUP Patient will follow up with Dr. Walter in approximately two weeks. Dictated by... Serina Marshall M.D. LORI/glen TD: 07/04/2016 11:54 JOB #: [id number] DISCHARGE SUMMARY Page 1 of 1 X Serina Marshall MD X DISCHARGE SUMMARY
--- NOTE | ~2016-07-03 | CT4 ---
[facility] A Service of [facility] & [facility] RADIOLOGY TEXT RESULTS PATIENT: ELIUD TAM LOCATION: [facility] : [birth year] UNIT #: [id number] AGE: [address]: Claude Schulz MD SEX: F ORDER DR: [id number] [facility] [address] [place], [place] [address] [id number] E MR#: [id number] Acc #: [id number] NAME: ELIUD TAM : 1930 SEX: F STUDY DATE/TIME: 07/04/2016 01:01 UNIT: [facility] ROOM: STUDY DESCRIPTION: CT Abd and Pelv Wo Cont Attending Physician: Claude Schulz M.D. Ordering Physician: Ha Mcgowan D.O. Primary Care Physician: Shen Walter M.D. MEDICAL IMAGING REPORT This report is preliminary unless electronic signature is present EXAM Abdomen and pelvis CT, 07/04/2016 at 0101 hours INDICATION Constipation and abdominal pain with nausea. Symptoms since Saturday of this week. Weakness. TECHNIQUE Axial noncontrast images were obtained through the abdomen and pelvis. Multiplanar reformats were obtained. Comparison is made with 06/22/2015. This CT exam was performed with one or more of the following radiation dose reduction techniques: automatic exposure control, adjustment of mA and/or kV according to patient size, and iterative reconstruction. FINDINGS ABDOMEN: There is some chronic right middle lobe scarring. Lung bases otherwise clear. Small hiatal hernia is present. There is atherosclerotic disease. Gallbladder unremarkable. No renal or ureteral stones are seen. There is no hydronephrosis. The unenhanced solid organs are grossly normal. The colon is fluid and gas-filled and distended. The unopacified small bowel is grossly normal. Additional review of the pancreas does demonstrate a hypodense round lesion measuring 9 mm in size in the pancreatic head. This lesion does appear be present on the 2006 exam and is felt to be benign. PELVIS: Large volume of stool in the rectal vault probably reflects an impaction. This probably accounts for the fluid-filled distension of the majority of the colon. Distal small bowel is within normal limits. The appendix is normal. No definite lower ureteral stones. Urinary bladder is normal. Solid pelvic organs are age appropriate. There is stable grade 1 anterolisthesis of L4 on L5. There is marked degenerative disease STS. [facility] A Service of [facility] & [facility] RADIOLOGY TEXT RESULTS PATIENT: ELIUD TAM LOCATION: [facility] : [birth year] UNIT #: [id number] AGE: [address]: Claude Schulz MD SEX: F ORDER DR: at L5-S1. IMPRESSION 1. Large volume of stool in the rectal vault suggesting an impaction. The remainder of the colon is predominately fluid and gas-filled and it does appear distended. The small bowel is normal. 2. No definite renal or ureteral stones. No hydronephrosis. 3. Hypodense lesion in the pancreas which I believe is present in 2006 and benign. 4. Small hiatal hernia. 5. Normal appendix. Dictated by... Nikolai Hodge Jr., M.D. THIS IS AN ELECTRONICALLY VERIFIED REPORT Nikolai Hodge Jr., M.D. at 07/04/2016 5:55 AM ANASTASIIA/jocy TD: 07/04/2016 03:29 JOB #: [id number] MEDICAL IMAGING REPORT Page 1 of 1 COPY
[2016-07-04 00:44] LABS: BASOPHIL# 0.1 X10e3 (0-0.3); EOSINOPHIL# 0.1 X10e3 (0-0.7); EOSINOPHIL% 1.5 % (0.0-7.0); HEMATOCRIT 36.5 % (35.0-45.0); HEMOGLOBIN 12.1 gm/dL (12.0-16.0); LYMPHOCYTE# 2.7 X10e3 (1.0-3.5); LYMPHOCYTE% 30.4 % (17.0-45.0); MEAN CORPUSCULAR HEMOGLOBIN 30.5 PG (28-34); MEAN CORPUSCULAR HGB CONC 33.1 g/dL (30-36); MEAN PLATELET VOLUME 8.5 FL (6.5-11.5); MONOCYTE% 11.5 % (3.0-12.0); NEUTROPHIL# 4.9 X10e3 (1.5-7.1); NEUTROPHIL% 55.6 % (40-75); PLATELET COUNT 153 X10e3 (140-420); RED BLOOD COUNT 3.97 X10e (3.90-5.30); RED CELL DISTRIBUTION WIDTH 13.4 % (11.0-15.5); WHITE BLOOD COUNT 8.7 X10e3 (4.0-10.5)
[2016-07-04 00:45] LABS: DIFF IND NO
[2016-07-04 01:38] LABS: ALBUMIN SERUM 4.4 g/dL (3.5-5.0); BILIRUBIN, DIRECT 0.1 mg/dL (0.0-0.2); BILIRUBIN,INDIRECT 0.4 mg/dL (0.0-0.9); BILIRUBIN,TOTAL 0.5 mg/dL (0.2-2.0); BUN/CREATININE RATIO 16.36; CALCIUM SERUM 9.4 mg/dL (8.4-10.2); CREATININE SERUM 1.1 mg/dL (0.6-1.4); GLOM FILT RATE Estimated 44.8 mL/min (>60); POTASSIUM 3.8 mmol/L (3.5-5.1); PROTEIN TOTAL SERUM 6.9 g/dL (6.0-8.3)
[2016-07-04 03:32] LABS: URINE SOURCE CLEAN CATCH
[2016-07-04 03:38] LABS: URINE APPEARANCE CLEAR; URINE BILIRUBIN NEG (NEG); URINE BLOOD NEG (NEG); URINE COLOR YELLOW; URINE GLUCOSE NEG (NEG); URINE KETONE TRACE (NEG); URINE LEUKOCYTE ESTERASE NEG (NEG); URINE NITRATE NEG (NEG); URINE PROTEIN NEG (NEG); URINE SPECIFIC GRAVITY 1.015 (1.003-1.035)
[2016-07-04 03:46] LABS: URINE PH 9.5 (5-8)
[2016-07-04 03:52] LABS: CULTURE INDICATED? NO
[2016-07-04 11:20] LABS: BASOPHIL% 0.5 % (0-2.5); EOSINOPHIL# 0.1 X10e3 (0-0.7); EOSINOPHIL% 1.4 % (0.0-7.0); HEMATOCRIT 32.1 % (35.0-45.0); HEMOGLOBIN 10.6 gm/dL (12.0-16.0); LYMPHOCYTE# 1.5 X10e3 (1.0-3.5); MEAN CELL VOLUME 93.8 FL (83-96); MEAN CORPUSCULAR HEMOGLOBIN 30.9 PG (28-34); MEAN CORPUSCULAR HGB CONC 32.9 g/dL (30-36); MEAN PLATELET VOLUME 8.8 FL (6.5-11.5); MONOCYTE% 14.3 % (3.0-12.0); NEUTROPHIL# 4.4 X10e3 (1.5-7.1); NEUTROPHIL% 62.8 % (40-75); PLATELET COUNT 123 X10e3 (140-420); RED BLOOD COUNT 3.42 X10e (3.90-5.30)
[2016-07-04 11:21] LABS: DIFF IND NO
[2016-07-04 11:43] LABS: BUN/CREATININE RATIO 13.63; CALCIUM SERUM 8.6 mg/dL (8.4-10.2); CREATININE SERUM 1.1 mg/dL (0.6-1.4); GLOM FILT RATE Estimated 44.8 mL/min (>60)
== END 2016-07-04 13:01 | disposition home or self-care (01) ==
LOC: CED 23:52 → CEDOF 07-04 06:00 → CED 07-04 06:50 → CEDOF 07-04 06:50 → C2A 07-04 06:57 → CEDOF 07-04 06:57 → C2A 07-04 07:23
PROVIDERS: Emergency Medicine; Internal Medicine
DX: K59.09 Other constipation (principal); R74.8 Abnormal levels of other serum enzymes; K86.2 Cyst of pancreas; K44.9 Diaphragmatic hernia without obstruction or gangrene; E03.9 Hypothyroidism, unspecified; J30.2 Other seasonal allergic rhinitis; M81.0 Age-related osteoporosis without current pathological fracture; Z79.899 Other long term (current) drug therapy; Z88.0 Allergy status to penicillin; Z88.2 Allergy status to sulfonamides
CPT/HCPCS: 36415; 74176; 80048; 80076; 81003; 82150; 83690; 85025; 96372; 99285; G0378; J0500; J2405

== ENCOUNTER → 2016-07-17 | Outpatient (CLI) | payer MEDICARE, BC ==
--- NOTE | ~2016-07-17 | MY11 ---
[facility] A Service of [facility] RADIOLOGY TEXT RESULTS PATIENT: ELIUD TAM LOCATION: [facility] : [birth year] UNIT #: [id number] AGE: [address]: Shen Walter MD SEX: F ORDER DR: [id number] [facility] [address] [place], [place] [address] [id number] O MR#: [id number] Acc #: [id number] NAME: ELIUD TAM. : 1930 SEX: F STUDY DATE/TIME: 07/17/2016 9:47 UNIT: [facility] ROOM: STUDY DESCRIPTION: MY Mammogram Screening Dig Mandeep Attending Physician: Shen Walter M.D. Ordering Physician: Shen Walter M.D. Primary Care Physician: Shen Walter M.D. MEDICAL IMAGING REPORT This report is preliminary unless electronic signature is present EXAM Bilateral digital screening mammogram with CAD INDICATIONS Routine screening. No current complaints. No family history of breast cancer. COMPARISON 07/15/2015 and 06/09/2014 and 05/12/2013 FINDINGS MLO and CC digital views of each breast were obtained. The exam was viewed with an FDA-approved CAD device. The breasts have scattered fibroglandular densities. There are stable calcifications in the right breast. There has been no change. IMPRESSION No change. No evidence of malignancy. Patient's over the age of 40 are entered into a reminder system with target due date for the next mammogram. A result letter will be sent to the patient. BIRADS: 2 Benign findings. Dictated by... Clarence Sears M.D. THIS IS AN ELECTRONICALLY VERIFIED REPORT Clarence Sears M.D. at 07/17/2016 1:22 PM FEL/to [facility] A Service of [facility] RADIOLOGY TEXT RESULTS PATIENT: ELIUD TAM LOCATION: [facility] : [birth year] UNIT #: [id number] AGE: [address]: Shen Walter MD SEX: F ORDER DR: TD: 07/17/2016 11:54 JOB #: [id number] MEDICAL IMAGING REPORT Page 1 of 1 COPY
== END | disposition home or self-care (01) ==
LOC: CWCC 09:25
DX: Z12.31 Encounter for screening mammogram for malignant neoplasm of breast (principal)
CPT/HCPCS: G0202